=== PATIENT | male | born 1980 | race Caucasian/White ===

== ENCOUNTER 2018-07-07 12:52 | Emergency (ER) | payer MEDICAID ==
[~2018-07-07] VITALS: Ht 175.3 cm; Wt 73.0 kg
--- NOTE | 2018-07-07 13:10 | NUR ---
INGUINAL HERNIA POPPED OUT 1 WEEK AGO, PS 6/10 ON SCROTAL AREA.
[2018-07-07 14:07] LABS: APPEARANCE,URINE Clear (CLEAR); BILIRUBIN,URINE Negative (NEGATIVE); BLOOD, URINE Negative Ery/uL (NEGATIVE); COLOR,URINE Yellow (YELLOW); KETONES,URINE Negative (NEGATIVE); LEUKOCYTE ESTERASE ,URINE Negative (NEGATIVE); NITRITE, URINE Negative (NEGATIVE); PH,URINE 6.5 (5.0-8.0); PROTEIN,URINE Negative (NEGATIVE); UGLUCOSE Negative (NEGATIVE); UROBILINOGEN,URINE 0.2 EU/dL (0.2)
--- NOTE | 2018-07-07 15:27 | NUR ---
Patient discharged to home in stable condition. Written and verbal after care instructions given. Patient verbalizes understanding of instruction.
[2018-07-07 15:28] VITALS: BP 138/80
== END 2018-07-07 15:28 | disposition home or self-care (01) ==
LOC: ER 12:52
DX: N50.811 Right testicular pain (principal); R10.31 Right lower quadrant pain; R30.0 Dysuria
CPT/HCPCS: 76870; 81001; 87491; 87591; 99284; A4606; 81000-TC